=== PATIENT | female | born 1950 | race Caucasian/White ===

== ENCOUNTER 2023-04-25 05:13 | Observation (INO) | payer OTHER, MEDICARE ==
[2023-04-25 05:33] VITALS: BMI 25.4
[2023-04-25] MEDS ORDERED: methylPREDNISolone NA SUCC 125 MG/2 ML VIAL ONE ×3 (05:43→06:18)
[2023-04-25 06:25] LABS: BASO % 0.2 % (0-2.0); EOS % 2.2 % (0-4.5); HEMATOCRIT 40.7 % (32.4-45.2); HEMOGLOBIN 13.4 GM/dL (10.7-15.3); LYMPH % 15.9 % (8-40); MCH 28.5 pg (25.7-33.7); MEAN CELL VOLUME 86.3 fl (80-96); MEAN PLT VOLUME 8.7 fl (7.5-11.1); MONO % 5.3 % (3.8-10.2); NEUT % 76.4 % (42.8-82.8); PLATELET COUNT 216 10^3/uL (134-434); RBC 4.71 M/mm3 (3.60-5.2); RDW 13.6 % (11.6-15.6); WHITE BLOOD COUNT 8.9 K/mm3 (4.0-10.0)
[2023-04-25] MEDS: ALBUTEROL SO4 2.5/IPRATROPIUM 0.5 INH SOL 3 ML VIAL.NEB. NEB SCH ×4 (06:29→20:36)
[2023-04-25 06:58] LABS: POTASSIUM 4.2 mmol/L (3.5-5.1)
[2023-04-25 07:02] LABS: ALBUMIN 3.4 g/dl (3.4-5.0); BLOOD UREA NITROGEN 20.5 mg/dL (7-18)
[2023-04-25 07:05] LABS: CREATININE 0.8 mg/dL (0.55-1.3)
[2023-04-25 07:07] LABS: TOT PROT 6.7 g/dl (6.4-8.2)
[2023-04-25 07:10] LABS: N-TERMINAL BNP 55.7 pg/ml (5-125)
[2023-04-25 07:11] LABS: BILIRUBIN,TOTAL 0.5 mg/dL (0.2-1)
[2023-04-25] MEDS ORDERED: ENTACAPONE 200 MG TABLET PO SCH ×2 (15:00→22:00)
[2023-04-25] MEDS: TIOTROPIUM BROMIDE 2.5 MCG (SPIRIVA) RESPIMAT INHALER IH SCH ×2 (15:41→17:21)
[2023-04-25] MEDS ORDERED: CARBIDOPA/LEVODOPA 25/100 TABLET (FP) PO SCH (22:00)
[2023-04-26] MEDS: ENTACAPONE 200 MG TABLET PO SCH ×3 (06:20→16:00)
[2023-04-26] MEDS ORDERED: CARBIDOPA/LEVODOPA 25/100 TABLET (FP) PO SCH (07:00)
[2023-04-26] MEDS: ALBUTEROL SO4 2.5/IPRATROPIUM 0.5 INH SOL 3 ML VIAL.NEB. NEB SCH ×4 (07:50→19:50)
[2023-04-26] MEDS: TIOTROPIUM BROMIDE 2.5 MCG (SPIRIVA) RESPIMAT INHALER IH SCH (09:28)
[2023-04-26] MEDS ORDERED: predniSONE 20 MG TABLET (UD) PO SCH (10:00)
[2023-04-26 10:53] LABS: BASO % 0.1 % (0-2.0); EOS % 1.8 % (0-4.5); HEMATOCRIT 39.2 % (32.4-45.2); HEMOGLOBIN 13.3 GM/dL (10.7-15.3); LYMPH % 17.1 % (8-40); MCH 28.8 pg (25.7-33.7); MCHC 33.9 g/dl (32.0-36.0); MEAN PLT VOLUME 8.1 fl (7.5-11.1); MONO % 5.7 % (3.8-10.2); NEUT % 75.3 % (42.8-82.8); PLATELET COUNT 227 10^3/uL (134-434); RBC 4.61 M/mm3 (3.60-5.2); RDW 13.5 % (11.6-15.6); WHITE BLOOD COUNT 7.5 K/mm3 (4.0-10.0)
[2023-04-26 11:16] LABS: POTASSIUM 4.2 mmol/L (3.5-5.1)
[2023-04-26 11:17] LABS: CALCIUM 9.2 mg/dL (8.5-10.1)
[2023-04-26 11:18] LABS: BLOOD UREA NITROGEN 20.8 mg/dL (7-18)
[2023-04-26 11:20] LABS: CREATININE 0.9 mg/dL (0.55-1.3)
[2023-04-26 11:32] VITALS: RESP 18
[2023-04-26] MEDS: CARBIDOPA/LEVODOPA 25/100 TABLET (FP) PO SCH ×2 (12:14→15:59)
[2023-04-26] MEDS: methylPREDNISolone NA SUCC 40 MG/1 ML VIAL IVPUSH SCH (12:23)
[2023-04-27] MEDS: ENTACAPONE 200 MG TABLET PO SCH ×2 (06:24→12:46)
[2023-04-27] MEDS: ALBUTEROL SO4 2.5/IPRATROPIUM 0.5 INH SOL 3 ML VIAL.NEB. NEB SCH ×3 (07:44→16:04)
[2023-04-27 10:34] LABS: BASO % 0.2 % (0-2.0); EOS % 1.7 % (0-4.5); HEMATOCRIT 41.9 % (32.4-45.2); HEMOGLOBIN 14.2 GM/dL (10.7-15.3); LYMPH % 18.3 % (8-40); MCH 28.9 pg (25.7-33.7); MCHC 33.9 g/dl (32.0-36.0); MEAN CELL VOLUME 85.3 fl (80-96); MEAN PLT VOLUME 8.6 fl (7.5-11.1); MONO % 5.2 % (3.8-10.2); NEUT % 74.6 % (42.8-82.8); PLATELET COUNT 240 10^3/uL (134-434); RBC 4.92 M/mm3 (3.60-5.2); RDW 13.6 % (11.6-15.6); WHITE BLOOD COUNT 7.4 K/mm3 (4.0-10.0)
[2023-04-27 10:50] LABS: POTASSIUM 4.1 mmol/L (3.5-5.1)
[2023-04-27 10:57] LABS: ALBUMIN 3.7 g/dl (3.4-5.0); BLOOD UREA NITROGEN 16.4 mg/dL (7-18); CALCIUM 9.6 mg/dL (8.5-10.1)
[2023-04-27 10:58] LABS: CREATININE 0.9 mg/dL (0.55-1.3)
[2023-04-27 11:01] LABS: BILIRUBIN,TOTAL 0.7 mg/dL (0.2-1); TOT PROT 7.4 g/dl (6.4-8.2)
[2023-04-27] MEDS: methylPREDNISolone NA SUCC 40 MG/1 ML VIAL IVPUSH SCH (11:22)
[2023-04-27] MEDS: TIOTROPIUM BROMIDE 2.5 MCG (SPIRIVA) RESPIMAT INHALER IH SCH (11:23)
[2023-04-27] MEDS: CARBIDOPA/LEVODOPA 25/100 TABLET (FP) PO SCH (12:42)
[2023-04-27 13:27] VITALS: BP 147/72; PULSE 78; TEMP 98.9
[2023-04-28] MEDS ORDERED: ENOXAPARIN NA (PORCINE) 40 MG/0.4 ML DISP.SYRIN SQ SCH (10:00)
== END 2023-04-27 16:14 | disposition home health service (06) ==
LOC: JER 05:13 → JERBED 10:42 → J5S 14:13
PROVIDERS: ADMIT Internal Medicine
PROC: 3E0F7GC Introduction of Other Therapeutic Substance into Respiratory Tract, Via Natural or Artificial Opening (ICD-10-PCS; principal; 2023-04-25)
DX: J45.901 Unspecified asthma with (acute) exacerbation (principal); R06.00 Dyspnea, unspecified; G20 Parkinson's disease; Z85.51 Personal history of malignant neoplasm of bladder; K59.09 Other constipation; M81.0 Age-related osteoporosis without current pathological fracture
CPT/HCPCS: 36415; 71045-TC-FY; 80048; 80053; 83880; 84484; 85025; 93005; 93010; 94640; 97116-GP; 97162-GP; 99285-25; G0378

== ENCOUNTER 2023-08-27 16:30 | Emergency (ER) | payer OTHER, MEDICARE ==
[2023-08-27 16:44] VITALS: RESP 18; TEMP 98.2; BMI 24.4
[2023-08-27] MEDS ORDERED: DIPHTH,PERTUSS(ACELL),TET 0.5 ML DISP.SYRIN IM ONE ×2 (18:28→18:46)
[2023-08-27] MEDS ORDERED: ACETAMINOPHEN 500 MG TABLET (FP) PO ONE (19:49)
[2023-08-27] MEDS ORDERED: ACETAMINOPHEN 500 MG TABLET (FP) ONE ×2 (19:51→19:54)
[2023-08-27 20:31] VITALS: BP 131/56; PULSE 62
== END 2023-08-27 22:14 | disposition home or self-care (01) ==
LOC: JER 16:30
PROC: 0HQDXZZ Repair Right Lower Arm Skin, External Approach (ICD-10-PCS; principal; 2023-08-27)
PROC: 3E0234Z Introduction of Serum, Toxoid and Vaccine into Muscle, Percutaneous Approach (ICD-10-PCS; 2023-08-27)
DX: S51.011A Laceration without foreign body of right elbow, initial encounter (principal); W19.XXXA Unspecified fall, initial encounter; Y92.008 Other place in unspecified non-institutional (private) residence as the place of occurrence of the external cause
CPT/HCPCS: 12002-25; 73070-TC-RT-FY; 90471; 90715; 99283-25

== ENCOUNTER 2023-08-30 15:19 | Observation (INO) | payer OTHER ==
[2023-08-30] MEDS ORDERED: CEPHALEXIN MONOHYDRATE 500 MG CAPSULE (UD) PO ONE (17:24)
[2023-08-30] MEDS ORDERED: CEPHALEXIN MONOHYDRATE 500 MG CAPSULE (UD) ONE (18:51)
[2023-08-30 19:10] LABS: BASO % 0.6 % (0-2.0); EOS % 2.2 % (0-4.5); HEMATOCRIT 38.6 % (32.4-45.2); HEMOGLOBIN 12.7 GM/dL (10.7-15.3); LYMPH % 25.1 % (8-40); MCH 29.1 pg (25.7-33.7); MEAN CELL VOLUME 88.2 fl (80-96); MEAN PLT VOLUME 8.3 fl (7.5-11.1); MONO % 6.2 % (3.8-10.2); NEUT % 65.9 % (42.8-82.8); PLATELET COUNT 235 10^3/uL (134-434); RBC 4.37 M/mm3 (3.60-5.2); RDW 13.7 % (11.6-15.6); WHITE BLOOD COUNT 8.1 K/mm3 (4.0-10.0)
[2023-08-30 19:14] LABS: EPI CELLS 11 /uL (0-25.1); HYALINE CASTS 0 /uL (0-3.1); URINE APPEARANCE CLEAR; URINE BACTERIA 133 /uL (0-1359); URINE BILIRUBIN NEGATIVE (NEGATIVE); URINE COLOR DK YELLOW; URINE GLUCOSE (UA) NEGATIVE (NEGATIVE); URINE KETONE TRACE (NEGATIVE); URINE LEUK ESTERASE 1+ (NEGATIVE); URINE NITRITE NEGATIVE (NEGATIVE); URINE PROTEIN NEGATIVE (NEGATIVE); URINE RBC 14 /uL (0-23.9); URINE WBC 54 /uL (0-25.8)
[2023-08-30 19:19] LABS: POTASSIUM 3.7 mmol/L (3.5-5.1)
[2023-08-30 19:22] LABS: ALBUMIN 3.2 g/dl (3.4-5.0); CALCIUM 9.4 mg/dL (8.5-10.1)
[2023-08-30 19:25] LABS: CREATININE 0.6 mg/dL (0.55-1.3)
[2023-08-30 19:26] LABS: BILIRUBIN,TOTAL 0.5 mg/dL (0.2-1)
[2023-08-30 19:28] LABS: TOT PROT 6.3 g/dl (6.4-8.2)
[2023-08-30 21:45] LABS: URINE CRYSTALS FEW /hpf
[2023-08-30] MEDS ORDERED: SODIUM CHLORIDE 1,000 ML IV SCH (22:30)
[2023-08-31] MEDS ORDERED: ALBUTEROL SO4 HFA INHALER IH PRN (06:49)
[2023-08-31] MEDS ORDERED: CARBIDOPA/LEVODOPA 25/100 TABLET (FP) PO SCH ×2 (07:00→12:00)
[2023-08-31 07:01] LABS: HEMATOCRIT 40.1 % (32.4-45.2); HEMOGLOBIN 13.2 GM/dL (10.7-15.3); MCH 29.1 pg (25.7-33.7); MEAN CELL VOLUME 88.3 fl (80-96); MEAN PLT VOLUME 8.2 fl (7.5-11.1); PLATELET COUNT 230 10^3/uL (134-434); RBC 4.54 M/mm3 (3.60-5.2); RDW 13.4 % (11.6-15.6); WHITE BLOOD COUNT 7.2 K/mm3 (4.0-10.0)
[2023-08-31 07:08] LABS: POTASSIUM 3.8 mmol/L (3.5-5.1)
[2023-08-31 07:11] LABS: BLOOD UREA NITROGEN 18.8 mg/dL (7-18); CALCIUM 8.7 mg/dL (8.5-10.1)
[2023-08-31 07:14] LABS: CREATININE 0.8 mg/dL (0.55-1.3)
[2023-08-31] MEDS: ENTACAPONE 200 MG TABLET PO SCH ×3 (08:56→16:12)
[2023-08-31] MEDS ORDERED: CEPHALEXIN MONOHYDRATE 500 MG CAPSULE (UD) PO SCH (10:00)
[2023-08-31] MEDS: CARBIDOPA/LEVODOPA 25/100 TABLET (FP) PO SCH ×3 (10:03→22:29)
[2023-08-31] MEDS: ENOXAPARIN NA (PORCINE) 40 MG/0.4 ML DISP.SYRIN SQ SCH (10:09)
[2023-08-31] MEDS: POLYETHYLENE GLYCOL (HEALTHYLAX) 3350 17 GM PACKET PO SCH (10:09)
[2023-08-31] MEDS ORDERED: CARBIDOPA/LEVODOPA 25/100 TABLET (FP) ONE ×2 (14:11→22:24)
[2023-08-31] MEDS ORDERED: HALOPERIDOL LACTATE 5 MG/ML IM ONE (20:02)
[2023-08-31] MEDS ORDERED: SENNOSIDES 8.6MG TABLET (FP) PO SCH (22:00)
[2023-08-31] MEDS ORDERED: SENNOSIDES 8.6MG TABLET (FP) PO ONE (22:24)
[2023-09-01] MEDS ORDERED: CARBIDOPA/LEVODOPA 25/100 TABLET (FP) ONE (06:06)
[2023-09-01] MEDS: CARBIDOPA/LEVODOPA 25/100 TABLET (FP) PO SCH ×3 (06:09→22:07)
[2023-09-01] MEDS ORDERED: CEFTRIAXONE 1 GM/50 ML BAG ONE (08:47)
[2023-09-01] MEDS: POLYETHYLENE GLYCOL (HEALTHYLAX) 3350 17 GM PACKET PO SCH (08:59)
[2023-09-01] MEDS: ENOXAPARIN NA (PORCINE) 40 MG/0.4 ML DISP.SYRIN SQ SCH (08:59)
[2023-09-01] MEDS: ENTACAPONE 200 MG TABLET PO SCH ×4 (08:59→21:13)
[2023-09-01] MEDS ORDERED: CEFTRIAXONE 1 GM in DEXTROSE 5%-WATER - 50 ML IVPB SCH (10:00)
[2023-09-01] MEDS ORDERED: LORazepam 2 MG/ML SDV VIAL IVPUSH ONE (11:23)
[2023-09-01 15:38] VITALS: BMI 23.4
[2023-09-01] MEDS ORDERED: ALBUTEROL SO4 HFA INHALER IH PRN (16:56)
[2023-09-01] MEDS ORDERED: SENNOSIDES 8.6MG TABLET (FP) PO SCH (22:00)
[2023-09-02] MEDS: CARBIDOPA/LEVODOPA 25/100 TABLET (FP) PO SCH ×2 (07:00→13:27)
[2023-09-02] MEDS: ENTACAPONE 200 MG TABLET PO SCH ×3 (07:00→15:25)
[2023-09-02] MEDS: ENOXAPARIN NA (PORCINE) 40 MG/0.4 ML DISP.SYRIN SQ SCH ×2 (09:22→09:24)
[2023-09-02] MEDS ORDERED: CEFTRIAXONE 1 GM in DEXTROSE 5%-WATER - 50 ML IVPB SCH (10:00)
[2023-09-02] MEDS ORDERED: FUROSEMIDE 20 MG TABLET (FP) PO SCH (10:00)
[2023-09-02] MEDS ORDERED: POLYETHYLENE GLYCOL (HEALTHYLAX) 3350 17 GM PACKET PO SCH (10:00)
[2023-09-02 11:47] VITALS: PULSE 92
[2023-09-02] MEDS ORDERED: CEPHALEXIN MONOHYDRATE 500 MG CAPSULE (UD) PO SCH (12:00)
[2023-09-02 15:00] VITALS: BP 118/67; RESP 18; TEMP 98.1
== END 2023-09-02 16:03 | disposition home health service (06) ==
LOC: JER 15:19 → JERBED 20:22 → J8W 09-01 14:21
PROVIDERS: ADMIT Internal Medicine; ATTEND Nurse Practitioner Acute Care
PROC: 3E03329 Introduction of Other Anti-infective into Peripheral Vein, Percutaneous Approach (ICD-10-PCS; principal; 2023-08-30)
PROC: 3E023GC Introduction of Other Therapeutic Substance into Muscle, Percutaneous Approach (ICD-10-PCS; 2023-08-30)
PROC: 3E033NZ Introduction of Analgesics, Hypnotics, Sedatives into Peripheral Vein, Percutaneous Approach (ICD-10-PCS; 2023-08-30)
PROC: 3E0337Z Introduction of Electrolytic and Water Balance Substance into Peripheral Vein, Percutaneous Approach (ICD-10-PCS; 2023-08-30)
DX: N39.0 Urinary tract infection, site not specified (principal); I95.1 Orthostatic hypotension; G20.A1 Parkinson's disease without dyskinesia, without mention of fluctuations; J45.909 Unspecified asthma, uncomplicated; K59.09 Other constipation; M81.0 Age-related osteoporosis without current pathological fracture; Z85.51 Personal history of malignant neoplasm of bladder; Z99.89 Dependence on other enabling machines and devices; Z29.89 Encounter for other specified prophylactic measures
CPT/HCPCS: 36415; 70450-TC; 70551-TC; 71045-TC-FY; 80048; 80053; 81003; 82962; 84484; 85025; 85027; 87086; 93005; 93010; 96361; 96365; 96372; 96375; 97116-GP; 97161-GP; 99285-25; G0378

== ENCOUNTER 2023-09-07 02:46 | Observation (INO) | payer OTHER ==
[2023-09-07] MEDS ORDERED: ACETAMINOPHEN 1000 MG/100 ML BAG IVPB ONE (03:50)
[2023-09-07] MEDS ORDERED: FAMOTIDINE 20 MG/50 ML IVPB 20 MG/50 ML MG IVPB ONE ×2 (03:50→04:24)
[2023-09-07] MEDS ORDERED: MAG HYDROX/AL HYDROX/SIMETH 30 ML UNIT-DOSE CUP PO ONE (03:50)
[2023-09-07] MEDS ORDERED: ACETAMINOPHEN INJECTION 100 ML IVPB ONE (04:24)
[2023-09-07] MEDS ORDERED: MAG HYDROX/AL HYDROX/SIMETH 30 ML UNIT-DOSE CUP ONE (04:24)
[2023-09-07 04:27] LABS: BASO % 0.1 % (0-2.0); EOS % 1.8 % (0-4.5); HEMATOCRIT 41.4 % (32.4-45.2); HEMOGLOBIN 13.6 GM/dL (10.7-15.3); MCHC 32.9 g/dl (32.0-36.0); MEAN CELL VOLUME 87.9 fl (80-96); MEAN PLT VOLUME 8.4 fl (7.5-11.1); MONO % 7.3 % (3.8-10.2); NEUT % 73.8 % (42.8-82.8); PLATELET COUNT 249 10^3/uL (134-434); RBC 4.71 M/mm3 (3.60-5.2); RDW 13.5 % (11.6-15.6); WHITE BLOOD COUNT 7.9 K/mm3 (4.0-10.0)
[2023-09-07 04:45] LABS: CALCIUM 9.5 mg/dL (8.5-10.1)
[2023-09-07 04:46] LABS: ALBUMIN 3.5 g/dl (3.4-5.0); BLOOD UREA NITROGEN 23.4 mg/dL (7-18)
[2023-09-07 04:49] LABS: CREATININE 0.8 mg/dL (0.55-1.3)
[2023-09-07 04:50] LABS: BILIRUBIN,TOTAL 0.6 mg/dL (0.2-1); TOT PROT 6.9 g/dl (6.4-8.2)
[2023-09-07] MEDS ORDERED: MAGNESIUM SULF 50% (8.12 MEQ/2 ML-1 GM VIAL) IVPB ONE (05:07)
[2023-09-07] MEDS ORDERED: MAGNESIUM SULFATE IN WATER 2 GM/50 ML IVPB IVPB ONE (05:08)
[2023-09-07 08:43] LABS: PH,URINE 6.5 (5.0-8.0); URINE APPEARANCE CLEAR; URINE BILIRUBIN NEGATIVE (NEGATIVE); URINE COLOR DK YELLOW; URINE GLUCOSE (UA) NEGATIVE (NEGATIVE); URINE KETONE NEGATIVE (NEGATIVE); URINE LEUK ESTERASE NEGATIVE (NEGATIVE); URINE NITRITE NEGATIVE (NEGATIVE); URINE PROTEIN NEGATIVE (NEGATIVE)
[2023-09-07] MEDS ORDERED: ALBUTEROL SO4 HFA INHALER IH PRN (10:29)
[2023-09-07] MEDS ORDERED: LACTATED RINGERS SOLUTION 1,000 ML IV SCH (10:30)
[2023-09-07] MEDS ORDERED: IBUPROFEN 400 MG TABLET (FP) PO PRN (11:12)
[2023-09-07] MEDS ORDERED: CARBIDOPA/LEVODOPA 25/100 TABLET (FP) ONE (12:09)
[2023-09-07] MEDS: POLYETHYLENE GLYCOL (HEALTHYLAX) 3350 17 GM PACKET PO SCH (12:11)
[2023-09-07] MEDS ORDERED: CARBIDOPA/LEVODOPA 25/100 TABLET (FP) PO SCH (14:00)
[2023-09-07] MEDS ORDERED: HALOPERIDOL LACTATE 5 MG/ML IVPUSH PRN (14:58)
[2023-09-07] MEDS: ENTACAPONE 200 MG TABLET PO SCH ×2 (16:17→16:18)
[2023-09-07] MEDS: CARBIDOPA/LEVODOPA 25/100 TABLET (FP) PO SCH (16:18)
[2023-09-07] MEDS ORDERED: LIDOCAINE PATCH REMOVAL MC SCH (22:00)
[2023-09-08 00:27] VITALS: BMI 22.8
[2023-09-08] MEDS: ENTACAPONE 200 MG TABLET PO SCH ×3 (06:49→17:08)
[2023-09-08] MEDS: CARBIDOPA/LEVODOPA 25/100 TABLET (FP) PO SCH ×4 (06:50→22:15)
[2023-09-08 07:25] LABS: BASO % 0.2 % (0-2.0); EOS % 2.3 % (0-4.5); HEMATOCRIT 38.6 % (32.4-45.2); HEMOGLOBIN 13.1 GM/dL (10.7-15.3); MCH 29.8 pg (25.7-33.7); MCHC 33.9 g/dl (32.0-36.0); MEAN PLT VOLUME 8.2 fl (7.5-11.1); MONO % 5.9 % (3.8-10.2); NEUT % 73.6 % (42.8-82.8); PLATELET COUNT 239 10^3/uL (134-434); RBC 4.38 M/mm3 (3.60-5.2); RDW 13.1 % (11.6-15.6)
[2023-09-08 07:37] LABS: ALBUMIN 3.3 g/dl (3.4-5.0); BLOOD UREA NITROGEN 19.7 mg/dL (7-18); MAGNESIUM 2.3 mg/dL (1.8-2.4)
[2023-09-08 07:40] LABS: CREATININE 0.8 mg/dL (0.55-1.3); PHOSPHOROUS 2.8 mg/dL (2.5-4.9)
[2023-09-08 07:41] LABS: TOT PROT 6.6 g/dl (6.4-8.2)
[2023-09-08 07:55] LABS: BILIRUBIN,TOTAL 0.8 mg/dL (0.2-1)
[2023-09-08] MEDS: POLYETHYLENE GLYCOL (HEALTHYLAX) 3350 17 GM PACKET PO SCH (09:15)
[2023-09-08] MEDS: LIDOCAINE 4% PATCH TP SCH (09:15)
[2023-09-08] MEDS: ENOXAPARIN NA (PORCINE) 40 MG/0.4 ML DISP.SYRIN SQ SCH (09:29)
[2023-09-08] MEDS: lamoTRIgine 25 MG TABLET PO SCH (13:43)
[2023-09-08] MEDS: LIDOCAINE PATCH REMOVAL MC SCH (22:25)
[2023-09-09] MEDS: OLANZapine 2.5 MG TABLET PO SCH ×2 (03:38→21:46)
[2023-09-09 07:47] LABS: HEMATOCRIT 40.4 % (32.4-45.2); HEMOGLOBIN 13.5 GM/dL (10.7-15.3); MCH 29.2 pg (25.7-33.7); MCHC 33.5 g/dl (32.0-36.0); MEAN CELL VOLUME 87.2 fl (80-96); MEAN PLT VOLUME 8.3 fl (7.5-11.1); PLATELET COUNT 267 10^3/uL (134-434); RBC 4.64 M/mm3 (3.60-5.2); RDW 13.6 % (11.6-15.6); WHITE BLOOD COUNT 6.5 K/mm3 (4.0-10.0)
[2023-09-09 07:55] LABS: POTASSIUM 3.9 mmol/L (3.5-5.1)
[2023-09-09 07:59] LABS: CALCIUM 9.4 mg/dL (8.5-10.1)
[2023-09-09 08:00] LABS: BLOOD UREA NITROGEN 16.2 mg/dL (7-18)
[2023-09-09 08:03] LABS: CREATININE 0.7 mg/dL (0.55-1.3)
[2023-09-09] MEDS: LIDOCAINE 4% PATCH TP SCH (09:42)
[2023-09-09] MEDS: ENOXAPARIN NA (PORCINE) 40 MG/0.4 ML DISP.SYRIN SQ SCH (09:42)
[2023-09-09] MEDS: CARBIDOPA/LEVODOPA 25/100 TABLET (FP) PO SCH ×4 (09:43→21:47)
[2023-09-09] MEDS: POLYETHYLENE GLYCOL (HEALTHYLAX) 3350 17 GM PACKET PO SCH (09:43)
[2023-09-09] MEDS: lamoTRIgine 25 MG TABLET PO SCH ×2 (09:43→10:05)
[2023-09-09 10:01] VITALS: RESP 18
[2023-09-09] MEDS: LIDOCAINE PATCH REMOVAL MC SCH (21:49)
[2023-09-10 06:29] VITALS: BP 146/76; PULSE 79; TEMP 97.8
[2023-09-10] MEDS: LIDOCAINE 4% PATCH TP SCH (10:34)
[2023-09-10] MEDS: CARBIDOPA/LEVODOPA 25/100 TABLET (FP) PO SCH (10:34)
[2023-09-10] MEDS: lamoTRIgine 25 MG TABLET PO SCH (10:35)
[2023-09-10] MEDS: POLYETHYLENE GLYCOL (HEALTHYLAX) 3350 17 GM PACKET PO SCH (10:35)
[2023-09-10] MEDS: ENOXAPARIN NA (PORCINE) 40 MG/0.4 ML DISP.SYRIN SQ SCH (10:42)
== END 2023-09-10 12:28 | disposition home health service (06) ==
LOC: JER 02:46 → JERBED 05:31 → J4W 16:54
PROVIDERS: ADMIT Internal Medicine; ATTEND Internal Medicine
PROC: 3E033NZ Introduction of Analgesics, Hypnotics, Sedatives into Peripheral Vein, Percutaneous Approach (ICD-10-PCS; principal; 2023-09-07)
PROC: 3E033GC Introduction of Other Therapeutic Substance into Peripheral Vein, Percutaneous Approach (ICD-10-PCS; 2023-09-07)
PROC: 3E0337Z Introduction of Electrolytic and Water Balance Substance into Peripheral Vein, Percutaneous Approach (ICD-10-PCS; 2023-09-07)
DX: R07.9 Chest pain, unspecified (principal); R55 Syncope and collapse; G20.B2 Parkinson's disease with dyskinesia, with fluctuations; G89.29 Other chronic pain; X58.XXXA Exposure to other specified factors, initial encounter; Y93.89 Activity, other specified; Y92.89 Other specified places as the place of occurrence of the external cause; M25.552 Pain in left hip; Y92.9 Unspecified place or not applicable; J45.909 Unspecified asthma, uncomplicated; K59.09 Other constipation; Z85.51 Personal history of malignant neoplasm of bladder; Z87.891 Personal history of nicotine dependence
CPT/HCPCS: 0241U-QW; 36415; 70450-TC; 71045-TC-FY; 71275-TC; 72125-TC; 74177-TC; 80048; 80053; 81003; 82607; 83735; 84100; 84439; 84443; 84484; 85025; 85027; 87086; 93005; 93010; 93306-TC; 96361; 96365; 96375; 97116-GP; 97162-GP; 99285-25; G0378

== ENCOUNTER 2023-09-17 13:08 | Inpatient (IN) | payer OTHER ==
[2023-09-17 13:26] VITALS: BMI 25.4
[2023-09-17] MEDS ORDERED: ACETAMINOPHEN 1000 MG/100 ML BAG IVPB ONE (14:29)
[2023-09-17] MEDS ORDERED: SODIUM CHLORIDE 0.9% 500 ML INFUS.BAG IV ONE (14:33)
[2023-09-17] MEDS ORDERED: ACETAMINOPHEN INJECTION 100 ML IVPB ONE (14:35)
[2023-09-17 15:09] LABS: BASO % 0.1 % (0-2.0); EOS % 0.2 % (0-4.5); HEMATOCRIT 46.8 % (32.4-45.2); HEMOGLOBIN 15.3 GM/dL (10.7-15.3); LYMPH % 8.1 % (8-40); MCH 28.8 pg (25.7-33.7); MCHC 32.8 g/dl (32.0-36.0); MEAN CELL VOLUME 87.8 fl (80-96); MEAN PLT VOLUME 8.5 fl (7.5-11.1); MONO % 4.5 % (3.8-10.2); NEUT % 87.1 % (42.8-82.8); PLATELET COUNT 283 10^3/uL (134-434); RBC 5.33 M/mm3 (3.60-5.2); RDW 13.1 % (11.6-15.6)
[2023-09-17 15:15] LABS: INR 1.06 (0.83-1.09); PROTHROMBIN TIME (PATIENT) 12.3 SEC (9.7-13.0)
[2023-09-17 15:18] LABS: ACTIVATED PTT 29.8 SECONDS (25.2-36.5)
[2023-09-17 15:58] LABS: ALBUMIN 3.9 g/dl (3.4-5.0); CALCIUM 10.1 mg/dL (8.5-10.1); MAGNESIUM 2.2 mg/dL (1.8-2.4)
[2023-09-17 15:59] LABS: BLOOD UREA NITROGEN 14.5 mg/dL (7-18)
[2023-09-17 16:03] LABS: BILIRUBIN,TOTAL 0.9 mg/dL (0.2-1); CREATININE 0.7 mg/dL (0.55-1.3); TOT PROT 7.8 g/dl (6.4-8.2)
[2023-09-18] MEDS ORDERED: LACTATED RINGERS SOLUTION 1,000 ML/1,000 ML INFUS.BAG IV SCH (00:15)
[2023-09-18] MEDS ORDERED: CEFTRIAXONE 1 GM in DEXTROSE 5%-WATER - 50 ML IVPB ONE (00:37)
[2023-09-18 01:29] LABS: EPI CELLS 1 /uL (0-25.1); HYALINE CASTS 0 /uL (0-3.1); URINE APPEARANCE CLOUDY; URINE BACTERIA 4423 /uL (0-1359); URINE BILIRUBIN NEGATIVE (NEGATIVE); URINE COLOR YELLOW; URINE GLUCOSE (UA) NEGATIVE (NEGATIVE); URINE KETONE 1+ (NEGATIVE); URINE LEUK ESTERASE 3+ (NEGATIVE); URINE NITRITE POSITIVE (NEGATIVE); URINE PROTEIN NEGATIVE (NEGATIVE); URINE RBC 127 /uL (0-23.9); URINE UROBILINOGEN 0.2 mg/dL (0.2-1.0); URINE WBC 2819 /uL (0-25.8)
[2023-09-18 02:18] LABS: HEMATOCRIT 43.9 % (32.4-45.2); HEMOGLOBIN 14.5 GM/dL (10.7-15.3); MCH 28.8 pg (25.7-33.7); MCHC 33.1 g/dl (32.0-36.0); MEAN CELL VOLUME 86.9 fl (80-96); MEAN PLT VOLUME 8.3 fl (7.5-11.1); PLATELET COUNT 261 10^3/uL (134-434); RBC 5.05 M/mm3 (3.60-5.2); RDW 13.3 % (11.6-15.6); WHITE BLOOD COUNT 10.1 K/mm3 (4.0-10.0)
[2023-09-18 02:37] LABS: POTASSIUM 3.7 mmol/L (3.5-5.1)
[2023-09-18 02:42] LABS: ALBUMIN 3.5 g/dl (3.4-5.0); BLOOD UREA NITROGEN 14.6 mg/dL (7-18)
[2023-09-18 02:44] LABS: CREATININE 0.7 mg/dL (0.55-1.3)
[2023-09-18 02:46] LABS: BILIRUBIN,TOTAL 1.4 mg/dL (0.2-1); CALCIUM 9.2 mg/dL (8.5-10.1); TOT PROT 7.1 g/dl (6.4-8.2)
[2023-09-18] MEDS ORDERED: CEFTRIAXONE 1 GM/50 ML BAG ONE (02:51)
[2023-09-18] MEDS: LACTATED RINGERS SOLUTION 1,000 ML/1,000 ML INFUS.BAG IV SCH (03:16)
[2023-09-18] MEDS ORDERED: SODIUM CHLORIDE 1,000 ML IV STA (06:08)
[2023-09-18] MEDS ORDERED: CARBIDOPA/LEVODOPA 25/100 TABLET (FP) PO SCH (08:00)
[2023-09-18] MEDS: lamoTRIgine 25 MG TABLET PO SCH (11:11)
[2023-09-18 11:12] LABS: HEMATOCRIT 40.8 % (32.4-45.2); HEMOGLOBIN 13.5 GM/dL (10.7-15.3); MCH 29.1 pg (25.7-33.7); MCHC 33.2 g/dl (32.0-36.0); MEAN CELL VOLUME 87.6 fl (80-96); MEAN PLT VOLUME 8.2 fl (7.5-11.1); PLATELET COUNT 241 10^3/uL (134-434); RBC 4.66 M/mm3 (3.60-5.2); RDW 12.9 % (11.6-15.6)
[2023-09-18] MEDS: HEPARIN NA (PORCINE) 5,000 UNITS/ML 1ML VIAL SQ SCH ×2 (15:10→21:27)
[2023-09-18] MEDS: CARBIDOPA/LEVODOPA 25/100 TABLET (FP) PO SCH ×3 (15:10→21:23)
[2023-09-18] MEDS: OLANZapine 2.5 MG TABLET PO SCH (21:23)
[2023-09-19] MEDS: CEFTRIAXONE 1 GM in DEXTROSE 5%-WATER - 50 ML IVPB SCH (01:51)
[2023-09-19] MEDS: LACTATED RINGERS SOLUTION 1,000 ML/1,000 ML INFUS.BAG IV SCH (03:00)
[2023-09-19] MEDS: HEPARIN NA (PORCINE) 5,000 UNITS/ML 1ML VIAL SQ SCH ×3 (06:10→21:02)
[2023-09-19 08:39] LABS: BASO % 0.3 % (0-2.0); EOS % 2.8 % (0-4.5); HEMATOCRIT 39.7 % (32.4-45.2); HEMOGLOBIN 13.7 GM/dL (10.7-15.3); LYMPH % 13.7 % (8-40); MCH 30.4 pg (25.7-33.7); MCHC 34.4 g/dl (32.0-36.0); MEAN CELL VOLUME 88.2 fl (80-96); MEAN PLT VOLUME 8.6 fl (7.5-11.1); MONO % 7.6 % (3.8-10.2); NEUT % 75.6 % (42.8-82.8); PLATELET COUNT 228 10^3/uL (134-434); RDW 12.9 % (11.6-15.6); WHITE BLOOD COUNT 8.1 K/mm3 (4.0-10.0)
[2023-09-19 08:44] LABS: POTASSIUM 3.9 mmol/L (3.5-5.1)
[2023-09-19 08:53] LABS: ALBUMIN 3.1 g/dl (3.4-5.0); BLOOD UREA NITROGEN 23.7 mg/dL (7-18); CALCIUM 9.1 mg/dL (8.5-10.1); PHOSPHOROUS 3.4 mg/dL (2.5-4.9)
[2023-09-19 08:55] LABS: BILIRUBIN,TOTAL 0.7 mg/dL (0.2-1); MAGNESIUM 1.9 mg/dL (1.8-2.4); TOT PROT 6.4 g/dl (6.4-8.2)
[2023-09-19 08:56] LABS: CREATININE 0.7 mg/dL (0.55-1.3)
[2023-09-19] MEDS: CARBIDOPA/LEVODOPA 25/100 TABLET (FP) PO SCH ×4 (10:01→21:19)
[2023-09-19] MEDS: lamoTRIgine 25 MG TABLET PO SCH (11:42)
[2023-09-19] MEDS: OLANZapine 2.5 MG TABLET PO SCH (21:02)
[2023-09-20] MEDS: CEFTRIAXONE 1 GM in DEXTROSE 5%-WATER - 50 ML IVPB SCH (00:49)
[2023-09-20] MEDS: HEPARIN NA (PORCINE) 5,000 UNITS/ML 1ML VIAL SQ SCH ×4 (05:59→21:53)
[2023-09-20] MEDS: CARBIDOPA/LEVODOPA 25/100 TABLET (FP) PO SCH ×4 (09:15→21:44)
[2023-09-20] MEDS: lamoTRIgine 25 MG TABLET PO SCH ×2 (09:16→09:27)
[2023-09-20] MEDS: ALBUTEROL SO4 HFA INHALER IH PRN (09:53)
[2023-09-20] MEDS ORDERED: SODIUM CHLORIDE 0.45% 1,000 ML IV SCH (13:15)
[2023-09-20] MEDS: OLANZapine 2.5 MG TABLET PO SCH (21:44)
[2023-09-21] MEDS: CEFTRIAXONE 1 GM in DEXTROSE 5%-WATER - 50 ML IVPB SCH (02:10)
[2023-09-21] MEDS: HEPARIN NA (PORCINE) 5,000 UNITS/ML 1ML VIAL SQ SCH ×2 (05:54→14:08)
[2023-09-21 08:38] LABS: BASO % 0.2 % (0-2.0); EOS % 2.2 % (0-4.5); HEMOGLOBIN 13.6 GM/dL (10.7-15.3); LYMPH % 19.5 % (8-40); MCH 29.2 pg (25.7-33.7); MCHC 33.1 g/dl (32.0-36.0); MEAN PLT VOLUME 8.5 fl (7.5-11.1); MONO % 7.1 % (3.8-10.2); PLATELET COUNT 238 10^3/uL (134-434); RBC 4.67 M/mm3 (3.60-5.2); WHITE BLOOD COUNT 6.1 K/mm3 (4.0-10.0)
[2023-09-21] MEDS: ALBUTEROL SO4 HFA INHALER IH PRN (08:52)
[2023-09-21 08:59] LABS: POTASSIUM 4.1 mmol/L (3.5-5.1)
[2023-09-21] MEDS: lamoTRIgine 25 MG TABLET PO SCH (09:05)
[2023-09-21] MEDS: CARBIDOPA/LEVODOPA 25/100 TABLET (FP) PO SCH ×3 (09:05→17:18)
[2023-09-21 09:06] LABS: CALCIUM 9.8 mg/dL (8.5-10.1)
[2023-09-21] MEDS: POLYETHYLENE GLYCOL (HEALTHYLAX) 3350 17 GM PACKET PO SCH (09:06)
[2023-09-21 09:07] LABS: ALBUMIN 3.3 g/dl (3.4-5.0)
[2023-09-21 09:10] LABS: CREATININE 0.7 mg/dL (0.55-1.3)
[2023-09-21 09:11] LABS: BILIRUBIN,TOTAL 0.4 mg/dL (0.2-1); TOT PROT 6.8 g/dl (6.4-8.2)
[2023-09-21] MEDS ORDERED: hydrOXYzine PAMOATE 25 MG CAPSULE (FP) PO ONE (20:54)
[2023-09-22] MEDS: CARBIDOPA/LEVODOPA 25/100 TABLET (FP) PO SCH ×5 (00:05→22:08)
[2023-09-22] MEDS: HEPARIN NA (PORCINE) 5,000 UNITS/ML 1ML VIAL SQ SCH ×4 (00:05→22:08)
[2023-09-22] MEDS: OLANZapine 2.5 MG TABLET PO SCH ×2 (00:06→22:08)
[2023-09-22] MEDS: CEFTRIAXONE 1 GM in DEXTROSE 5%-WATER - 50 ML IVPB SCH (01:11)
[2023-09-22] MEDS: lamoTRIgine 25 MG TABLET PO SCH ×2 (10:19→22:08)
[2023-09-22] MEDS: POLYETHYLENE GLYCOL (HEALTHYLAX) 3350 17 GM PACKET PO SCH (10:19)
[2023-09-22] MEDS ORDERED: QUEtiapine FUMARATE 25 MG TABLET PO ONE (19:57)
[2023-09-23] MEDS: HEPARIN NA (PORCINE) 5,000 UNITS/ML 1ML VIAL SQ SCH ×3 (05:52→21:49)
[2023-09-23] MEDS ORDERED: ALBUTEROL SO4 HFA INHALER IH PRN (07:20)
[2023-09-23 10:20] LABS: HEMATOCRIT 42.3 % (32.4-45.2); HEMOGLOBIN 14.1 GM/dL (10.7-15.3); MCH 29.3 pg (25.7-33.7); MCHC 33.2 g/dl (32.0-36.0); MEAN CELL VOLUME 88.2 fl (80-96); MEAN PLT VOLUME 8.5 fl (7.5-11.1); PLATELET COUNT 240 10^3/uL (134-434); RDW 12.9 % (11.6-15.6); WHITE BLOOD COUNT 7.5 K/mm3 (4.0-10.0)
[2023-09-23 10:35] LABS: POTASSIUM 3.9 mmol/L (3.5-5.1)
[2023-09-23] MEDS: POLYETHYLENE GLYCOL (HEALTHYLAX) 3350 17 GM PACKET PO SCH (10:37)
[2023-09-23] MEDS: CARBIDOPA/LEVODOPA 25/100 TABLET (FP) PO SCH ×4 (10:37→21:49)
[2023-09-23 10:39] LABS: BLOOD UREA NITROGEN 16.9 mg/dL (7-18); CALCIUM 9.5 mg/dL (8.5-10.1)
[2023-09-23 10:43] LABS: CREATININE 0.7 mg/dL (0.55-1.3)
[2023-09-23] MEDS: lamoTRIgine 25 MG TABLET PO SCH ×2 (11:33→21:48)
[2023-09-23] MEDS ORDERED: MELATONIN 5 MG TABLETS PO PRN (13:31)
[2023-09-23] MEDS: OLANZapine 2.5 MG TABLET PO SCH (21:49)
[2023-09-24] MEDS: HEPARIN NA (PORCINE) 5,000 UNITS/ML 1ML VIAL SQ SCH ×3 (06:13→21:35)
[2023-09-24] MEDS: POLYETHYLENE GLYCOL (HEALTHYLAX) 3350 17 GM PACKET PO SCH (10:21)
[2023-09-24] MEDS: lamoTRIgine 25 MG TABLET PO SCH ×2 (10:21→21:35)
[2023-09-24] MEDS: CARBIDOPA/LEVODOPA 25/100 TABLET (FP) PO SCH ×4 (10:22→21:35)
[2023-09-24] MEDS: OLANZapine 2.5 MG TABLET PO SCH (21:37)
[2023-09-25] MEDS: HEPARIN NA (PORCINE) 5,000 UNITS/ML 1ML VIAL SQ SCH ×2 (06:12→14:51)
[2023-09-25 06:50] VITALS: PULSE 91
[2023-09-25 08:59] VITALS: BP 107/68; RESP 17; TEMP 98.4
[2023-09-25] MEDS: POLYETHYLENE GLYCOL (HEALTHYLAX) 3350 17 GM PACKET PO SCH (10:34)
[2023-09-25] MEDS: lamoTRIgine 25 MG TABLET PO SCH (10:34)
[2023-09-25] MEDS: CARBIDOPA/LEVODOPA 25/100 TABLET (FP) PO SCH (11:40)
== END 2023-09-25 15:16 | DRG 56 ==
LOC: JER 13:08 → JERBED 21:38 → J4W 09-18 14:06 → OBSVTOIN 09-18 15:50 → J5S 09-22 19:32
PROVIDERS: ADMIT Internal Medicine
DX: G20.A1 Parkinson's disease without dyskinesia, without mention of fluctuations (principal); G93.41 Metabolic encephalopathy; M62.82 Rhabdomyolysis; G40.909 Epilepsy, unspecified, not intractable, without status epilepticus; W06.XXXA Fall from bed, initial encounter; J45.909 Unspecified asthma, uncomplicated; M81.0 Age-related osteoporosis without current pathological fracture; K59.09 Other constipation; E78.5 Hyperlipidemia, unspecified; I10 Essential (primary) hypertension; N83.292 Other ovarian cyst, left side; R29.6 Repeated falls; G31.84 Mild cognitive impairment of uncertain or unknown etiology; Y92.092 Bedroom in other non-institutional residence as the place of occurrence of the external cause; Z85.51 Personal history of malignant neoplasm of bladder
CPT/HCPCS: 0241U-QW; 36415; 70450-TC; 71045-TC-FY; 72125-TC; 72128-TC; 72131-TC; 72170-TC-FY; 72192-TC; 73552-TC-LT-FY; 73562-TC-LT-FY; 76856-TC; 80048; 80053; 81003; 82550; 82553; 82607; 83735; 84100; 84439; 84443; 84484; 85025; 85027; 85610; 85730; 87040; 87086; 87186; 93005; 93010; 97116-GP; 97161-GP; 99285-25; G0378; J1644

== ENCOUNTER 2023-09-28 03:16 | Inpatient (IN) | payer BC, OTHER ==
[2023-09-28 03:26] VITALS: BMI 24.4
[2023-09-28] MEDS ORDERED: LIDOCAINE 4% PATCH TP ONE ×2 (03:44→03:58)
[2023-09-28] MEDS ORDERED: ACETAMINOPHEN 1000 MG/100 ML BAG IVPB ONE (03:44)
[2023-09-28] MEDS ORDERED: ACETAMINOPHEN INJECTION 100 ML IVPB ONE (03:58)
[2023-09-28 04:27] LABS: EOS % 0.4 % (0-4.5); HEMATOCRIT 41.4 % (32.4-45.2); HEMOGLOBIN 13.6 GM/dL (10.7-15.3); LYMPH % 5.5 % (8-40); MCH 28.8 pg (25.7-33.7); MCHC 32.8 g/dl (32.0-36.0); MEAN CELL VOLUME 87.7 fl (80-96); MEAN PLT VOLUME 8.6 fl (7.5-11.1); MONO % 8.3 % (3.8-10.2); NEUT % 85.8 % (42.8-82.8); PLATELET COUNT 251 10^3/uL (134-434); RBC 4.72 M/mm3 (3.60-5.2); RDW 13.1 % (11.6-15.6); WHITE BLOOD COUNT 13.4 K/mm3 (4.0-10.0)
[2023-09-28 04:31] LABS: INR 1.12 (0.83-1.09)
[2023-09-28 04:47] LABS: CALCIUM 9.7 mg/dL (8.5-10.1)
[2023-09-28 04:48] LABS: ALBUMIN 3.6 g/dl (3.4-5.0); BLOOD UREA NITROGEN 21.7 mg/dL (7-18)
[2023-09-28 04:51] LABS: CREATININE 0.8 mg/dL (0.55-1.3)
[2023-09-28 04:52] LABS: BILIRUBIN,TOTAL 0.6 mg/dL (0.2-1); TOT PROT 7.2 g/dl (6.4-8.2)
[2023-09-28 06:43] LABS: BASO % 0.2 % (0-2.0); EOS % 0.4 % (0-4.5); HEMATOCRIT 39.8 % (32.4-45.2); HEMOGLOBIN 13.2 GM/dL (10.7-15.3); LYMPH % 7.1 % (8-40); MCH 28.9 pg (25.7-33.7); MCHC 33.1 g/dl (32.0-36.0); MEAN CELL VOLUME 87.3 fl (80-96); MEAN PLT VOLUME 9.2 fl (7.5-11.1); MONO % 7.7 % (3.8-10.2); NEUT % 84.6 % (42.8-82.8); PLATELET COUNT 241 10^3/uL (134-434); RBC 4.56 M/mm3 (3.60-5.2); RDW 13.4 % (11.6-15.6); WHITE BLOOD COUNT 12.4 K/mm3 (4.0-10.0)
[2023-09-28 08:08] LABS: URINE APPEARANCE CLEAR; URINE BILIRUBIN NEGATIVE (NEGATIVE); URINE COLOR DK YELLOW; URINE GLUCOSE (UA) NEGATIVE (NEGATIVE); URINE KETONE 1+ (NEGATIVE); URINE LEUK ESTERASE NEGATIVE (NEGATIVE); URINE NITRITE NEGATIVE (NEGATIVE); URINE PROTEIN TRACE (NEGATIVE)
[2023-09-28] MEDS ORDERED: MELATONIN 5 MG TABLETS PO PRN (08:10)
[2023-09-28] MEDS ORDERED: ACETAMINOPHEN 325 MG TABLET (FP) PO PRN (08:10)
[2023-09-28] MEDS ORDERED: ALBUTEROL SO4 HFA INHALER IH PRN (08:11)
[2023-09-28 08:13] LABS: EPI CELLS 5 /uL (0-25.1); HYALINE CASTS 1 /uL (0-3.1); URINE BACTERIA 8 /uL (0-1359); URINE WBC 14 /uL (0-25.8)
[2023-09-28 08:17] LABS: URINE RBC 37.8 /uL (0-23.9)
[2023-09-28] MEDS ORDERED: POLYETHYLENE GLYCOL (HEALTHYLAX) 3350 17 GM PACKET ONE (10:41)
[2023-09-28] MEDS ORDERED: lamoTRIgine 25 MG TABLET ONE (10:43)
[2023-09-28] MEDS: POLYETHYLENE GLYCOL (HEALTHYLAX) 3350 17 GM PACKET PO SCH (10:43)
[2023-09-28] MEDS: lamoTRIgine 25 MG TABLET PO SCH ×2 (10:44→22:06)
[2023-09-28] MEDS: DEXTROSE 5%-LACTATED RINGERS 1,000 ML IV SCH ×2 (10:44→20:00)
[2023-09-28] MEDS: CARBIDOPA/LEVODOPA 25/100 TABLET (FP) PO SCH ×4 (10:44→21:37)
[2023-09-28] MEDS ORDERED: CARBIDOPA/LEVODOPA 25/100 TABLET (FP) ONE ×2 (14:05→17:11)
[2023-09-28] MEDS ORDERED: OLANZapine 2.5 MG TABLET PO SCH (22:00)
[2023-09-28] MEDS ORDERED: LIDOCAINE PATCH REMOVAL MC SCH (22:00)
[2023-09-29] MEDS: CARBIDOPA/LEVODOPA 25/100 TABLET (FP) PO SCH ×5 (09:53→21:30)
[2023-09-29] MEDS ORDERED: ceFAZolin SODIUM 1 GM VIAL ONE ×2 (09:59→10:18)
[2023-09-29] MEDS: lamoTRIgine 25 MG TABLET PO SCH ×3 (10:11→21:30)
[2023-09-29] MEDS: POLYETHYLENE GLYCOL (HEALTHYLAX) 3350 17 GM PACKET PO SCH (10:14)
[2023-09-29] MEDS ORDERED: MIDAZOLAM HCL 2 MG/2 ML SINGLE DOSE VIAL ONE (10:18)
[2023-09-29] MEDS ORDERED: DEXAMETHASONE SOD PHOSPHATE 4 MG/1 ML VIAL ONE (10:18)
[2023-09-29] MEDS ORDERED: ONDANSETRON 4 MG/2 ML VIAL ONE (10:18)
[2023-09-29] MEDS ORDERED: SODIUM CHLORIDE 0.9% P/F 10 ML VIAL IJ ONE (10:18)
[2023-09-29] MEDS ORDERED: ALBUTEROL SO4 HFA INHALER IH ONE (10:18)
[2023-09-29 10:23] LABS: BASO % 0.1 % (0-2.0); HEMATOCRIT 38.9 % (32.4-45.2); HEMOGLOBIN 13.3 GM/dL (10.7-15.3); LYMPH % 13.3 % (8-40); MCH 29.4 pg (25.7-33.7); MCHC 34.2 g/dl (32.0-36.0); MEAN PLT VOLUME 8.3 fl (7.5-11.1); MONO % 11.6 % (3.8-10.2); PLATELET COUNT 224 10^3/uL (134-434); RBC 4.52 M/mm3 (3.60-5.2); RDW 13.4 % (11.6-15.6); WHITE BLOOD COUNT 7.4 K/mm3 (4.0-10.0)
[2023-09-29 10:39] LABS: POTASSIUM 3.9 mmol/L (3.5-5.1)
[2023-09-29] MEDS ORDERED: VANCOMYCIN 1,000 MG VIAL (RESTRICTED TO ID ONLY) ONE (10:43)
[2023-09-29 10:49] LABS: ALBUMIN 3.2 g/dl (3.4-5.0); BLOOD UREA NITROGEN 13.9 mg/dL (7-18); CALCIUM 8.9 mg/dL (8.5-10.1); MAGNESIUM 1.7 mg/dL (1.8-2.4)
[2023-09-29 10:52] LABS: CREATININE 0.6 mg/dL (0.55-1.3); PHOSPHOROUS 2.6 mg/dL (2.5-4.9)
[2023-09-29 10:53] LABS: BILIRUBIN,TOTAL 0.7 mg/dL (0.2-1); TOT PROT 6.6 g/dl (6.4-8.2)
[2023-09-29] MEDS ORDERED: ceFAZolin SODIUM 1 GM VIAL IVPB ONE ×2 (11:05→11:30)
[2023-09-29] MEDS ORDERED: HYDROmorphone HCl 2 MG/ML VIAL ONE (11:28)
[2023-09-29] MEDS ORDERED: ACETAMINOPHEN INJECTION 100 ML IVPB ONE (11:32)
[2023-09-29] MEDS ORDERED: VANCOMYCIN 1,000 MG VIAL (RESTRICTED TO ID ONLY) IVPB ONE (11:35)
[2023-09-29] MEDS ORDERED: PROPOFOL 40 ML ONE (11:39)
[2023-09-29] MEDS ORDERED: PHENYLEPHRINE HCL 10 MG/1 ML SINGLE DOSE VIAL ONE (11:51)
[2023-09-29] MEDS ORDERED: LACTATED RINGERS SOLUTION 1,000 ML IV SCH (12:15)
[2023-09-29] MEDS ORDERED: CARBIDOPA/LEVODOPA 25/100 TABLET (FP) PO SCH (13:00)
[2023-09-29] MEDS ORDERED: ALBUTEROL SO4 HFA INHALER IH PRN (13:18)
[2023-09-29] MEDS ORDERED: DEXTROSE 5%-LACTATED RINGERS 1,000 ML IV SCH (13:18)
[2023-09-29] MEDS ORDERED: MAGNESIUM SULF 50% (8.12 MEQ/2 ML-1 GM VIAL) IVPB ONE (17:07)
[2023-09-29] MEDS ORDERED: CEFAZOLIN SODIUM 2 GM in DEXTROSE 5%-WATER 100 ML IVPB SCH (19:00)
[2023-09-29] MEDS: CEFAZOLIN SODIUM 2 GM in DEXTROSE 5%-WATER 100 ML IVPB SCH (20:51)
[2023-09-29] MEDS: OLANZapine 2.5 MG TABLET PO SCH ×2 (21:00→21:31)
[2023-09-29] MEDS: LIDOCAINE PATCH REMOVAL MC SCH (21:01)
[2023-09-30] MEDS: CEFAZOLIN SODIUM 2 GM in DEXTROSE 5%-WATER 100 ML IVPB SCH (03:21)
[2023-09-30] MEDS ORDERED: ASPIRIN 325 MG TABLET PO SCH (08:00)
[2023-09-30 10:07] LABS: BASO % 0.1 % (0-2.0); EOS % 0.2 % (0-4.5); HEMATOCRIT 37.8 % (32.4-45.2); HEMOGLOBIN 12.3 GM/dL (10.7-15.3); LYMPH % 9.2 % (8-40); MCH 28.4 pg (25.7-33.7); MCHC 32.7 g/dl (32.0-36.0); MEAN PLT VOLUME 8.3 fl (7.5-11.1); MONO % 8.3 % (3.8-10.2); NEUT % 82.2 % (42.8-82.8); PLATELET COUNT 232 10^3/uL (134-434); RBC 4.34 M/mm3 (3.60-5.2); RDW 13.6 % (11.6-15.6); WHITE BLOOD COUNT 12.8 K/mm3 (4.0-10.0)
[2023-09-30] MEDS: lamoTRIgine 25 MG TABLET PO SCH ×2 (10:08→23:18)
[2023-09-30] MEDS: POLYETHYLENE GLYCOL (HEALTHYLAX) 3350 17 GM PACKET PO SCH (10:08)
[2023-09-30] MEDS: ENOXAPARIN NA (PORCINE) 40 MG/0.4 ML DISP.SYRIN SQ SCH (10:08)
[2023-09-30] MEDS: CARBIDOPA/LEVODOPA 25/100 TABLET (FP) PO SCH ×3 (10:08→17:33)
[2023-09-30] MEDS: ASPIRIN 325 MG TABLET PO SCH (10:08)
[2023-09-30 10:23] LABS: POTASSIUM 3.9 mmol/L (3.5-5.1)
[2023-09-30 10:25] LABS: CALCIUM 7.9 mg/dL (8.5-10.1)
[2023-09-30 10:26] LABS: ALBUMIN 2.8 g/dl (3.4-5.0); BLOOD UREA NITROGEN 11.5 mg/dL (7-18)
[2023-09-30 10:29] LABS: CREATININE 0.7 mg/dL (0.55-1.3)
[2023-09-30 10:31] LABS: BILIRUBIN,TOTAL 0.7 mg/dL (0.2-1); TOT PROT 6.3 g/dl (6.4-8.2)
[2023-09-30] MEDS ORDERED: ACETAMINOPHEN 325 MG TABLET (FP) PO PRN ×2 (14:17→14:19)
[2023-09-30] MEDS: CARBIDOPA/LEVODOPA 25/250 TABLET (FP) PO SCH ×2 (18:44→23:17)
[2023-09-30] MEDS: LIDOCAINE PATCH REMOVAL MC SCH (23:17)
[2023-09-30] MEDS: MELATONIN 5 MG TABLETS PO PRN (23:17)
[2023-09-30] MEDS: OLANZapine 2.5 MG TABLET PO SCH (23:17)
[2023-09-30] MEDS ORDERED: oxyCODONE HCL 5 MG TABLET PO PRN (23:28)
[2023-10-01] MEDS: ASPIRIN 325 MG TABLET PO SCH (10:46)
[2023-10-01] MEDS: CARBIDOPA/LEVODOPA 25/250 TABLET (FP) PO SCH ×4 (10:46→22:36)
[2023-10-01] MEDS: ENOXAPARIN NA (PORCINE) 40 MG/0.4 ML DISP.SYRIN SQ SCH ×2 (10:46→11:18)
[2023-10-01] MEDS: POLYETHYLENE GLYCOL (HEALTHYLAX) 3350 17 GM PACKET PO SCH (10:46)
[2023-10-01] MEDS: lamoTRIgine 25 MG TABLET PO SCH ×3 (10:47→22:39)
[2023-10-01 11:18] LABS: HEMATOCRIT 33.6 % (32.4-45.2); HEMOGLOBIN 11.2 GM/dL (10.7-15.3); MCH 29.3 pg (25.7-33.7); MCHC 33.3 g/dl (32.0-36.0); MEAN PLT VOLUME 8.3 fl (7.5-11.1); PLATELET COUNT 210 10^3/uL (134-434); RBC 3.82 M/mm3 (3.60-5.2); WHITE BLOOD COUNT 9.3 K/mm3 (4.0-10.0)
[2023-10-01 16:57] VITALS: RESP 18
[2023-10-01] MEDS: ACETAMINOPHEN 325 MG TABLET (FP) PO SCH (17:00)
[2023-10-01] MEDS ORDERED: SENNOSIDES 8.8 MG/5 ML SYRUP PO SCH (22:00)
[2023-10-01] MEDS: oxyCODONE HCL 5 MG TABLET PO PRN (22:37)
[2023-10-01] MEDS: LIDOCAINE PATCH REMOVAL MC SCH (22:38)
[2023-10-01] MEDS: OLANZapine 2.5 MG TABLET PO SCH (22:38)
[2023-10-02] MEDS: ACETAMINOPHEN 325 MG TABLET (FP) PO SCH ×2 (05:03→10:47)
[2023-10-02] MEDS: MELATONIN 5 MG TABLETS PO PRN (07:33)
[2023-10-02] MEDS: lamoTRIgine 25 MG TABLET PO SCH (10:46)
[2023-10-02] MEDS: POLYETHYLENE GLYCOL (HEALTHYLAX) 3350 17 GM PACKET PO SCH (10:46)
[2023-10-02] MEDS: oxyCODONE HCL 5 MG TABLET PO PRN (10:46)
[2023-10-02] MEDS: ASPIRIN 325 MG TABLET PO SCH (10:46)
[2023-10-02] MEDS: CARBIDOPA/LEVODOPA 25/250 TABLET (FP) PO SCH ×2 (10:46→13:58)
[2023-10-02] MEDS: ENOXAPARIN NA (PORCINE) 40 MG/0.4 ML DISP.SYRIN SQ SCH (10:48)
[2023-10-02 14:43] VITALS: BP 103/63; PULSE 96; TEMP 97.6
== END 2023-10-02 16:06 | DRG 521 ==
LOC: JER 03:16 → JERBED 06:31 → J5S 17:56
PROVIDERS: ADMIT Internal Medicine; ATTEND Internal Medicine
PROC: 0SRS0JZ Replacement of Left Hip Joint, Femoral Surface with Synthetic Substitute, Open Approach (ICD-10-PCS; principal; 2023-09-29 11:30)
DX: S72.002A Fracture of unspecified part of neck of left femur, initial encounter for closed fracture (principal); U07.1 COVID-19; I10 Essential (primary) hypertension; J45.909 Unspecified asthma, uncomplicated; M54.9 Dorsalgia, unspecified; G20.A1 Parkinson's disease without dyskinesia, without mention of fluctuations; M81.0 Age-related osteoporosis without current pathological fracture; K59.00 Constipation, unspecified; W01.0XXA Fall on same level from slipping, tripping and stumbling without subsequent striking against object, initial encounter; Y92.098 Other place in other non-institutional residence as the place of occurrence of the external cause; Y99.9 Unspecified external cause status; Z85.51 Personal history of malignant neoplasm of bladder
CPT/HCPCS: 0241U-QW; 36415; 70450-TC; 71045-TC-FY; 72125-TC; 72170-TC-FY; 73502-TC-LT-FY; 73521-TC-FY; 80048; 80053; 81003; 83735; 84100; 84484; 85025; 85027; 85610; 86850; 86900; 86901; 87086; 87635; 88305-TC; 88311-TC; 93005; 93010; 94010; 94760; 97116-GP; 97161-GP; 99285-25; C1776

== ENCOUNTER 2023-11-19 12:26 | Inpatient (IN) | payer BC, OTHER ==
[2023-11-19 13:30] LABS: HEMATOCRIT 39.9 % (32.4-45.2); HEMOGLOBIN 12.9 GM/dL (10.7-15.3); MCH 27.4 pg (25.7-33.7); MCHC 32.3 g/dl (32.0-36.0); MEAN CELL VOLUME 84.9 fl (80-96); MEAN PLT VOLUME 8.4 fl (7.5-11.1); PLATELET COUNT 330 10^3/uL (134-434); RDW 13.7 % (11.6-15.6); WHITE BLOOD COUNT 28.1 K/mm3 (4.0-10.0)
[2023-11-19] MEDS ORDERED: ACETAMINOPHEN INJECTION 100 ML IVPB ONE (13:37)
[2023-11-19 13:38] LABS: INR 1.34 (0.83-1.09); PROTHROMBIN TIME (PATIENT) 15.5 SEC (9.7-13.0)
[2023-11-19 13:41] LABS: ACTIVATED PTT 25.3 SECONDS (25.2-36.5)
[2023-11-19] MEDS: ACETAMINOPHEN 1000 MG/100 ML BAG IVPB ONE (13:44)
[2023-11-19] MEDS: LACTATED RINGERS SOLUTION 1000 ML INFUS.BAG IV ONE (13:44)
[2023-11-19 13:50] LABS: ANISOCYTOSIS 1+; MACROCYTOSIS 0
[2023-11-19 14:11] LABS: EPI CELLS >36 /uL (0-25.1); HYALINE CASTS 51 /uL (0-3.1); PH,URINE >= 9.0 (5.0-8.0); URINE APPEARANCE TURBID; URINE BACTERIA >9,000 /uL (0-1359); URINE BILIRUBIN NEGATIVE (NEGATIVE); URINE COLOR DK YELLOW; URINE GLUCOSE (UA) NEGATIVE (NEGATIVE); URINE KETONE NEGATIVE (NEGATIVE); URINE LEUK ESTERASE 3+ (NEGATIVE); URINE NITRITE NEGATIVE (NEGATIVE); URINE PROTEIN 3+ (NEGATIVE); URINE WBC 13143 /uL (0-25.8)
[2023-11-19 14:13] LABS: URINE RBC 276.9 /uL (0-23.9)
[2023-11-19 14:14] LABS: YEAST NEGATIVE (NEGATIVE)
[2023-11-19 14:20] LABS: LACTIC ACID 2.1 mmol/L (0.4-2.0)
[2023-11-19 14:20] LABS: ALBUMIN 2.7 g/dl (3.4-5.0); BILIRUBIN,TOTAL 0.7 mg/dL (0.2-1); CALCIUM 8.6 mg/dL (8.5-10.1); CREATININE 0.8 mg/dL (0.55-1.3); MAGNESIUM 2.6 mg/dL (1.8-2.4); PHOSPHOROUS 3.1 mg/dL (2.5-4.9); TOT PROT 7.1 g/dl (6.4-8.2)
[2023-11-19 14:27] VITALS: BMI 25.4
[2023-11-19] MEDS ORDERED: CEFTRIAXONE 1 GM/50 ML BAG ONE (15:11)
[2023-11-19] MEDS ORDERED: LACTATED RINGERS SOLUTION 1,000 ML/1,000 ML INFUS.BAG IV SCH (15:30)
[2023-11-19] MEDS ORDERED: ALBUTEROL SO4 HFA INHALER IH PRN ×2 (16:02→18:30)
[2023-11-19] MEDS ORDERED: ACETAMINOPHEN 325 MG TABLET (FP) PO PRN (16:02)
[2023-11-19] MEDS ORDERED: PROPOFOL 20 ML ONE (17:40)
[2023-11-19] MEDS ORDERED: LACTATED RINGERS SOLUTION 1,000 ML IV SCH ×2 (18:00→18:15)
[2023-11-19] MEDS ORDERED: ONDANSETRON 4 MG/2 ML VIAL IVPUSH PRN (18:06)
[2023-11-19] MEDS: LACTATED RINGERS SOLUTION 1,000 ML/1,000 ML INFUS.BAG IV SCH (18:34)
[2023-11-19] MEDS ORDERED: oxyCODONE HCL 5 MG TABLET PO PRN (18:40)
[2023-11-19] MEDS: lamoTRIgine 25 MG TABLET PO SCH (21:28)
[2023-11-19] MEDS: ENTACAPONE 200 MG TABLET PO SCH (21:29)
[2023-11-19] MEDS: OLANZapine 2.5 MG TABLET PO SCH (21:29)
[2023-11-19] MEDS ORDERED: OLANZapine 2.5 MG TABLET PO SCH (22:00)
[2023-11-19] MEDS ORDERED: ENTACAPONE 200 MG TABLET PO SCH (22:00)
[2023-11-19] MEDS ORDERED: lamoTRIgine 25 MG TABLET PO SCH (22:00)
[2023-11-19] MEDS ORDERED: SENNOSIDES 8.8 MG/5 ML SYRUP PO SCH ×2 (22:00)
[2023-11-20] MEDS ORDERED: ENOXAPARIN NA (PORCINE) 40 MG/0.4 ML DISP.SYRIN SQ SCH (10:00)
[2023-11-20] MEDS ORDERED: FLU VACCINE (FLULAVAL) PF 60 MCG/0.5 ML SYRINGE 2023-2024 IM ONE (10:00)
[2023-11-20] MEDS ORDERED: ASPIRIN 325 MG TABLET PO SCH ×2 (10:00)
[2023-11-20] MEDS ORDERED: CEFTRIAXONE 1 GM in DEXTROSE 5%-WATER - 50 ML IVPB SCH (10:00)
[2023-11-20] MEDS: CEFTRIAXONE 1 GM in DEXTROSE 5%-WATER - 50 ML IVPB SCH (10:26)
[2023-11-20] MEDS: POLYETHYLENE GLYCOL (HEALTHYLAX) 3350 17 GM PACKET PO SCH (10:26)
[2023-11-20] MEDS: ASPIRIN 325 MG TABLET PO SCH (10:26)
[2023-11-20] MEDS: ENOXAPARIN NA (PORCINE) 40 MG/0.4 ML DISP.SYRIN SQ SCH (10:45)
[2023-11-20 13:09] LABS: HEMATOCRIT 31.3 % (32.4-45.2); HEMOGLOBIN 10.6 GM/dL (10.7-15.3); MCH 28.3 pg (25.7-33.7); MCHC 33.9 g/dl (32.0-36.0); MEAN CELL VOLUME 83.7 fl (80-96); MEAN PLT VOLUME 8.2 fl (7.5-11.1); PLATELET COUNT 277 10^3/uL (134-434); RBC 3.74 M/mm3 (3.60-5.2); RDW 13.9 % (11.6-15.6); WHITE BLOOD COUNT 20.7 K/mm3 (4.0-10.0)
[2023-11-20 13:23] LABS: CHLORIDE 105 mmol/L (98-107); POTASSIUM 3.9 mmol/L (3.5-5.1); SODIUM 139 mmol/L (136-145)
[2023-11-20 13:25] LABS: CALCIUM 8.1 mg/dL (8.5-10.1)
[2023-11-20 13:26] LABS: ANION GAP 5 mmol/L (4-13); BLOOD UREA NITROGEN 19.6 mg/dL (7-18); CO2 28 mmol/L (21-32); GLUCOSE,RANDOM 78 mg/dL (74-106); MAGNESIUM 1.8 mg/dL (1.8-2.4)
[2023-11-20 13:28] LABS: ALBUMIN 2.2 g/dl (3.4-5.0)
[2023-11-20 13:29] LABS: CREATININE 0.5 mg/dL (0.55-1.3); SGOT/AST 10 U/L (15-37); SGPT/ALT < 6 U/L (13-61)
[2023-11-20 13:30] LABS: TOT PROT 5.5 g/dl (6.4-8.2)
[2023-11-20 13:31] LABS: BILIRUBIN,TOTAL 0.6 mg/dL (0.2-1)
[2023-11-20 13:34] LABS: ALK PHOS 125 U/L (45-117)
[2023-11-20 13:44] LABS: ANISOCYTOSIS 3+; MACROCYTOSIS 0
[2023-11-20] MEDS: PIPERACILLIN/TAZOB 4.5 GM 4.5 GM in DEXTROSE 5%-WATER 100 ML IVPB SCH (14:20)
[2023-11-20] MEDS: MIRTAZAPINE 15 MG TABLET (FP) PO SCH (16:10)
[2023-11-20] MEDS: ACETAMINOPHEN 325 MG TABLET (FP) PO PRN (21:43)
[2023-11-21] MEDS: ENTACAPONE 200 MG TABLET PO ONE (01:08)
[2023-11-21] MEDS: OLANZapine 2.5 MG TABLET PO ONE (01:08)
[2023-11-21] MEDS: lamoTRIgine 25 MG TABLET PO ONE (01:09)
[2023-11-21 08:51] LABS: CHLORIDE 106 mmol/L (98-107); SODIUM 142 mmol/L (136-145)
[2023-11-21 08:52] LABS: CALCIUM 8.2 mg/dL (8.5-10.1)
[2023-11-21 08:53] LABS: ALBUMIN 2.1 g/dl (3.4-5.0); ANION GAP 9 mmol/L (4-13); BLOOD UREA NITROGEN 19.1 mg/dL (7-18); CO2 26 mmol/L (21-32); GLUCOSE,RANDOM 79 mg/dL (74-106); MAGNESIUM 2.1 mg/dL (1.8-2.4)
[2023-11-21 08:56] LABS: CREATININE 0.5 mg/dL (0.55-1.3); SGOT/AST 10 U/L (15-37)
[2023-11-21 08:57] LABS: TOT PROT 5.4 g/dl (6.4-8.2)
[2023-11-21 08:58] LABS: BILIRUBIN,TOTAL 0.6 mg/dL (0.2-1)
[2023-11-21 08:59] LABS: ALK PHOS 105 U/L (45-117)
[2023-11-21 09:01] LABS: SGPT/ALT < 6 U/L (13-61)
[2023-11-21 09:08] LABS: BASO % 0.3 % (0-2.0); EOS % 1.5 % (0-4.5); HEMATOCRIT 31.6 % (32.4-45.2); HEMOGLOBIN 10.1 GM/dL (10.7-15.3); LYMPH % 9.6 % (8-40); MCHC 31.8 g/dl (32.0-36.0); MEAN PLT VOLUME 8.4 fl (7.5-11.1); MONO % 6.1 % (3.8-10.2); NEUT % 82.5 % (42.8-82.8); PLATELET COUNT 309 10^3/uL (134-434); RBC 3.72 M/mm3 (3.60-5.2); RDW 13.9 % (11.6-15.6); WHITE BLOOD COUNT 16.3 K/mm3 (4.0-10.0)
[2023-11-21] MEDS: AMINO ACIDS 4.25%/D5W 1,000 ML IV SCH (13:10)
[2023-11-22 07:43] LABS: BASO % 0.1 % (0-2.0); EOS % 1.6 % (0-4.5); HEMOGLOBIN 10.6 GM/dL (10.7-15.3); LYMPH % 9.6 % (8-40); MCHC 33.1 g/dl (32.0-36.0); MEAN CELL VOLUME 84.7 fl (80-96); MEAN PLT VOLUME 8.1 fl (7.5-11.1); MONO % 6.5 % (3.8-10.2); NEUT % 82.2 % (42.8-82.8); PLATELET COUNT 364 10^3/uL (134-434); RBC 3.78 M/mm3 (3.60-5.2); RDW 13.7 % (11.6-15.6); WHITE BLOOD COUNT 15.9 K/mm3 (4.0-10.0)
[2023-11-22 07:58] LABS: CHLORIDE 105 mmol/L (98-107); POTASSIUM 3.9 mmol/L (3.5-5.1); SODIUM 139 mmol/L (136-145)
[2023-11-22 08:03] LABS: ALBUMIN 2.2 g/dl (3.4-5.0); ANION GAP 5 mmol/L (4-13); BLOOD UREA NITROGEN 20.7 mg/dL (7-18); CALCIUM 8.4 mg/dL (8.5-10.1); CO2 29 mmol/L (21-32); GLUCOSE,RANDOM 100 mg/dL (74-106); MAGNESIUM 1.9 mg/dL (1.8-2.4)
[2023-11-22 08:06] LABS: CREATININE 0.5 mg/dL (0.55-1.3)
[2023-11-22 08:07] LABS: SGOT/AST 13 U/L (15-37)
[2023-11-22 08:08] LABS: BILIRUBIN,TOTAL 0.6 mg/dL (0.2-1); TOT PROT 5.7 g/dl (6.4-8.2)
[2023-11-22 08:09] LABS: ALK PHOS 110 U/L (45-117)
[2023-11-22 08:15] LABS: SGPT/ALT < 6 U/L (13-61)
[2023-11-22] MEDS: SODIUM CHLORIDE 1,000 ML IV SCH (10:40)
[2023-11-23 08:52] LABS: BASO % 0.3 % (0-2.0); EOS % 1.2 % (0-4.5); HEMATOCRIT 29.8 % (32.4-45.2); LYMPH % 9.7 % (8-40); MCHC 33.5 g/dl (32.0-36.0); MEAN CELL VOLUME 83.5 fl (80-96); MEAN PLT VOLUME 7.8 fl (7.5-11.1); MONO % 4.5 % (3.8-10.2); NEUT % 84.3 % (42.8-82.8); PLATELET COUNT 395 10^3/uL (134-434); RBC 3.57 M/mm3 (3.60-5.2); RDW 13.9 % (11.6-15.6); WHITE BLOOD COUNT 15.5 K/mm3 (4.0-10.0)
[2023-11-23 09:08] LABS: POTASSIUM 3.8 mmol/L (3.5-5.1)
[2023-11-23 09:11] LABS: ALBUMIN 2.1 g/dl (3.4-5.0); BLOOD UREA NITROGEN 17.2 mg/dL (7-18); CALCIUM 8.6 mg/dL (8.5-10.1)
[2023-11-23 09:14] LABS: CREATININE 0.4 mg/dL (0.55-1.3)
[2023-11-23 09:16] LABS: BILIRUBIN,TOTAL 0.5 mg/dL (0.2-1); TOT PROT 5.4 g/dl (6.4-8.2)
[2023-11-24 09:20] LABS: HEMATOCRIT 32.7 % (32.4-45.2); HEMOGLOBIN 10.9 GM/dL (10.7-15.3); MCH 27.8 pg (25.7-33.7); MCHC 33.3 g/dl (32.0-36.0); MEAN CELL VOLUME 83.6 fl (80-96); MEAN PLT VOLUME 7.7 fl (7.5-11.1); PLATELET COUNT 481 10^3/uL (134-434); RBC 3.91 M/mm3 (3.60-5.2); WHITE BLOOD COUNT 15.4 K/mm3 (4.0-10.0)
[2023-11-24 09:50] LABS: CHLORIDE 108 mmol/L (98-107); POTASSIUM 3.6 mmol/L (3.5-5.1); SODIUM 141 mmol/L (136-145)
[2023-11-24 10:02] LABS: ALBUMIN 2.4 g/dl (3.4-5.0); ANION GAP 7 mmol/L (4-13); CALCIUM 8.4 mg/dL (8.5-10.1); CO2 26 mmol/L (21-32); GLUCOSE,RANDOM 94 mg/dL (74-106); MAGNESIUM 2.1 mg/dL (1.8-2.4)
[2023-11-24 10:05] LABS: CREATININE 0.5 mg/dL (0.55-1.3)
[2023-11-24 10:06] LABS: SGOT/AST 12 U/L (15-37)
[2023-11-24 10:07] LABS: BILIRUBIN,TOTAL 0.6 mg/dL (0.2-1)
[2023-11-24 10:08] LABS: ALK PHOS 111 U/L (45-117)
[2023-11-24 10:42] LABS: BLOOD UREA NITROGEN 14.6 mg/dL (7-18)
[2023-11-24 10:45] LABS: SGPT/ALT < 6 U/L (13-61)
[2023-11-24] MEDS: AMINO ACIDS/PROTEIN HYDROLYS 30 ML LIQUID.PKT PO SCH (16:40)
[2023-11-24] MEDS: MULTIVIT INJ. ADULT COMBO WITH VIT K 1 COMBO 10 ML VIAL IV SCH (17:56)
[2023-11-24] MEDS: AMINO ACIDS 4.25%/D5W 1,000 ML IV SCH (17:57)
[2023-11-24] MEDS: MULTIVIT INJECTION ADULT 10 ML in AMINO ACIDS 4.25%/D5W 1,000 ML IV SCH (18:36)
[2023-11-25 08:30] LABS: HEMATOCRIT 30.5 % (32.4-45.2); MCH 27.2 pg (25.7-33.7); MCHC 32.8 g/dl (32.0-36.0); MEAN PLT VOLUME 7.7 fl (7.5-11.1); PLATELET COUNT 432 10^3/uL (134-434); RBC 3.67 M/mm3 (3.60-5.2); RDW 13.9 % (11.6-15.6)
[2023-11-25 09:02] LABS: CHLORIDE 107 mmol/L (98-107); POTASSIUM 3.3 mmol/L (3.5-5.1); SODIUM 139 mmol/L (136-145)
[2023-11-25 09:08] LABS: ALBUMIN 2.3 g/dl (3.4-5.0); BLOOD UREA NITROGEN 14.6 mg/dL (7-18); CALCIUM 8.6 mg/dL (8.5-10.1); GLUCOSE,RANDOM 88 mg/dL (74-106)
[2023-11-25 09:09] LABS: ANION GAP 7 mmol/L (4-13); CO2 26 mmol/L (21-32); MAGNESIUM 1.8 mg/dL (1.8-2.4)
[2023-11-25 09:11] LABS: CREATININE 0.4 mg/dL (0.55-1.3); SGOT/AST 12 U/L (15-37); SGPT/ALT < 6 U/L (13-61)
[2023-11-25 09:13] LABS: BILIRUBIN,TOTAL 0.6 mg/dL (0.2-1); TOT PROT 5.7 g/dl (6.4-8.2)
[2023-11-25 09:14] LABS: ALK PHOS 100 U/L (45-117)
[2023-11-26 08:06] LABS: HEMATOCRIT 30.9 % (32.4-45.2); HEMOGLOBIN 10.1 GM/dL (10.7-15.3); MCH 27.4 pg (25.7-33.7); MCHC 32.8 g/dl (32.0-36.0); MEAN CELL VOLUME 83.6 fl (80-96); MEAN PLT VOLUME 7.6 fl (7.5-11.1); PLATELET COUNT 461 10^3/uL (134-434); RBC 3.69 M/mm3 (3.60-5.2); RDW 13.8 % (11.6-15.6)
[2023-11-26 08:21] LABS: POTASSIUM 3.3 mmol/L (3.5-5.1)
[2023-11-26 08:23] LABS: CALCIUM 8.5 mg/dL (8.5-10.1)
[2023-11-26 08:24] LABS: ALBUMIN 2.2 g/dl (3.4-5.0); BLOOD UREA NITROGEN 13.1 mg/dL (7-18); MAGNESIUM 1.9 mg/dL (1.8-2.4)
[2023-11-26 08:27] LABS: CREATININE 0.5 mg/dL (0.55-1.3)
[2023-11-26 08:28] LABS: BILIRUBIN,TOTAL 0.5 mg/dL (0.2-1); TOT PROT 5.7 g/dl (6.4-8.2)
[2023-11-26] MEDS: AMINO ACIDS 4.25%/D5W 1,000 ML IV SCH ×3 (08:31→18:34)
[2023-11-27 08:28] LABS: HEMATOCRIT 28.5 % (32.4-45.2); HEMOGLOBIN 9.6 GM/dL (10.7-15.3); MCH 28.2 pg (25.7-33.7); MCHC 33.7 g/dl (32.0-36.0); MEAN CELL VOLUME 83.6 fl (80-96); MEAN PLT VOLUME 7.6 fl (7.5-11.1); PLATELET COUNT 469 10^3/uL (134-434); RBC 3.41 M/mm3 (3.60-5.2); WHITE BLOOD COUNT 10.6 K/mm3 (4.0-10.0)
[2023-11-27 08:47] LABS: CHLORIDE 109 mmol/L (98-107); POTASSIUM 3.5 mmol/L (3.5-5.1); SODIUM 143 mmol/L (136-145)
[2023-11-27 08:49] LABS: ALBUMIN 2.1 g/dl (3.4-5.0); ANION GAP 6 mmol/L (4-13); CALCIUM 8.6 mg/dL (8.5-10.1); CO2 28 mmol/L (21-32); GLUCOSE,RANDOM 86 mg/dL (74-106)
[2023-11-27 08:53] LABS: CREATININE 0.4 mg/dL (0.55-1.3); SGOT/AST 13 U/L (15-37)
[2023-11-27 08:54] LABS: BILIRUBIN,TOTAL 0.4 mg/dL (0.2-1); TOT PROT 5.6 g/dl (6.4-8.2)
[2023-11-27 08:55] LABS: ALK PHOS 94 U/L (45-117)
[2023-11-27 08:59] LABS: SGPT/ALT < 6 U/L (13-61)
[2023-11-27] MEDS: MINERAL OIL/PET HY-PHL TOPICAL OINTMENT 454 GM JAR TP SCH (14:40)
[2023-11-27] MEDS: AMOX TR/POT CLAV 875MG/125MG TABLETS (FP) PO SCH (17:27)
[2023-11-28 08:22] LABS: HEMATOCRIT 30.6 % (32.4-45.2); HEMOGLOBIN 10.1 GM/dL (10.7-15.3); MCH 27.7 pg (25.7-33.7); MCHC 32.9 g/dl (32.0-36.0); MEAN PLT VOLUME 7.3 fl (7.5-11.1); PLATELET COUNT 473 10^3/uL (134-434); RBC 3.64 M/mm3 (3.60-5.2); RDW 13.9 % (11.6-15.6)
[2023-11-28 08:36] LABS: POTASSIUM 3.7 mmol/L (3.5-5.1); SODIUM 142 mmol/L (136-145)
[2023-11-28 08:38] LABS: ALBUMIN 2.4 g/dl (3.4-5.0); CALCIUM 8.9 mg/dL (8.5-10.1); CO2 30 mmol/L (21-32); GLUCOSE,RANDOM 82 mg/dL (74-106); MAGNESIUM 1.9 mg/dL (1.8-2.4)
[2023-11-28 08:41] LABS: SGOT/AST 16 U/L (15-37); SGPT/ALT < 6 U/L (13-61)
[2023-11-28 08:43] LABS: BILIRUBIN,TOTAL 0.4 mg/dL (0.2-1)
[2023-11-28 08:44] LABS: ALK PHOS 113 U/L (45-117); ANION GAP 4 mmol/L (4-13); CHLORIDE 108 mmol/L (98-107); CREATININE 0.4 mg/dL (0.55-1.3)
[2023-11-29 08:25] LABS: HEMATOCRIT 31.7 % (32.4-45.2); HEMOGLOBIN 10.3 GM/dL (10.7-15.3); MCH 27.5 pg (25.7-33.7); MCHC 32.6 g/dl (32.0-36.0); MEAN CELL VOLUME 84.4 fl (80-96); MEAN PLT VOLUME 7.5 fl (7.5-11.1); PLATELET COUNT 449 10^3/uL (134-434); RBC 3.75 M/mm3 (3.60-5.2); RDW 14.1 % (11.6-15.6); WHITE BLOOD COUNT 8.5 K/mm3 (4.0-10.0)
[2023-11-29 08:49] LABS: CHLORIDE 109 mmol/L (98-107); POTASSIUM 3.9 mmol/L (3.5-5.1); SODIUM 144 mmol/L (136-145)
[2023-11-29 08:51] LABS: ALBUMIN 2.4 g/dl (3.4-5.0); CALCIUM 9.1 mg/dL (8.5-10.1)
[2023-11-29 08:52] LABS: ANION GAP 5 mmol/L (4-13); BLOOD UREA NITROGEN 16.1 mg/dL (7-18); CO2 31 mmol/L (21-32); GLUCOSE,RANDOM 88 mg/dL (74-106); MAGNESIUM 2.1 mg/dL (1.8-2.4)
[2023-11-29 08:54] LABS: CREATININE 0.4 mg/dL (0.55-1.3)
[2023-11-29 08:55] LABS: SGOT/AST 16 U/L (15-37)
[2023-11-29 08:56] LABS: BILIRUBIN,TOTAL 0.4 mg/dL (0.2-1); TOT PROT 5.9 g/dl (6.4-8.2)
[2023-11-29 08:57] LABS: ALK PHOS 116 U/L (45-117); SGPT/ALT < 6 U/L (13-61)
[2023-11-30 08:35] LABS: HEMATOCRIT 30.4 % (32.4-45.2); HEMOGLOBIN 10.1 GM/dL (10.7-15.3); MCH 27.6 pg (25.7-33.7); MCHC 33.1 g/dl (32.0-36.0); MEAN CELL VOLUME 83.5 fl (80-96); MEAN PLT VOLUME 7.8 fl (7.5-11.1); PLATELET COUNT 428 10^3/uL (134-434); RBC 3.64 M/mm3 (3.60-5.2); RDW 14.4 % (11.6-15.6); WHITE BLOOD COUNT 8.9 K/mm3 (4.0-10.0)
[2023-11-30 09:04] LABS: CHLORIDE 110 mmol/L (98-107); SODIUM 143 mmol/L (136-145)
[2023-11-30 09:12] LABS: ALBUMIN 2.4 g/dl (3.4-5.0); GLUCOSE,RANDOM 85 mg/dL (74-106)
[2023-11-30 09:13] LABS: BLOOD UREA NITROGEN 15.4 mg/dL (7-18)
[2023-11-30 09:14] LABS: ANION GAP 4 mmol/L (4-13); CO2 29 mmol/L (21-32); MAGNESIUM 2.1 mg/dL (1.8-2.4)
[2023-11-30 09:15] LABS: CREATININE 0.4 mg/dL (0.55-1.3); SGOT/AST 11 U/L (15-37)
[2023-11-30 09:17] LABS: BILIRUBIN,TOTAL 0.4 mg/dL (0.2-1); TOT PROT 5.7 g/dl (6.4-8.2)
[2023-11-30 09:18] LABS: ALK PHOS 116 U/L (45-117)
[2023-11-30 09:22] LABS: SGPT/ALT < 6 U/L (13-61)
[2023-11-30] MEDS: DRONABINOL 2.5 MG CAPSULE PO SCH (10:54)
[2023-11-30] MEDS: ASCORBIC ACID 500 MG TABLET (FP) PO SCH (13:26)
[2023-11-30] MEDS: ZINC SULFATE 220 MG CAPSULE (FP) PO SCH (13:26)
[2023-11-30] MEDS: MULTIVIT-MINERALS ORAL LIQUID PO SCH (13:46)
[2023-12-01 11:13] LABS: BASO % 0.5 % (0-2.0); EOS % 3.1 % (0-4.5); HEMATOCRIT 31.3 % (32.4-45.2); HEMOGLOBIN 10.3 GM/dL (10.7-15.3); LYMPH % 16.6 % (8-40); MCH 27.6 pg (25.7-33.7); MCHC 32.8 g/dl (32.0-36.0); MEAN PLT VOLUME 7.6 fl (7.5-11.1); MONO % 5.5 % (3.8-10.2); NEUT % 74.3 % (42.8-82.8); PLATELET COUNT 436 10^3/uL (134-434); RBC 3.72 M/mm3 (3.60-5.2); RDW 15.1 % (11.6-15.6); WHITE BLOOD COUNT 7.9 K/mm3 (4.0-10.0)
[2023-12-01 11:27] LABS: POTASSIUM 4.2 mmol/L (3.5-5.1)
[2023-12-01 11:31] LABS: ALBUMIN 2.4 g/dl (3.4-5.0); BLOOD UREA NITROGEN 16.7 mg/dL (7-18); CALCIUM 9.3 mg/dL (8.5-10.1)
[2023-12-01 11:34] LABS: CREATININE 0.5 mg/dL (0.55-1.3)
[2023-12-01 11:35] LABS: BILIRUBIN,TOTAL 0.4 mg/dL (0.2-1)
[2023-12-01 11:36] LABS: TOT PROT 6.1 g/dl (6.4-8.2)
[2023-12-02 09:21] LABS: CHLORIDE 108 mmol/L (98-107); POTASSIUM 4.2 mmol/L (3.5-5.1); SODIUM 144 mmol/L (136-145)
[2023-12-02 09:26] LABS: BLOOD UREA NITROGEN 18.3 mg/dL (7-18)
[2023-12-02 09:27] LABS: ALBUMIN 2.5 g/dl (3.4-5.0); ANION GAP 9 mmol/L (4-13); CO2 28 mmol/L (21-32); GLUCOSE,RANDOM 84 mg/dL (74-106)
[2023-12-02 09:29] LABS: CREATININE 0.4 mg/dL (0.55-1.3); SGOT/AST 13 U/L (15-37)
[2023-12-02 09:31] LABS: BILIRUBIN,TOTAL 0.5 mg/dL (0.2-1)
[2023-12-02 09:32] LABS: ALK PHOS 126 U/L (45-117); SGPT/ALT < 6 U/L (13-61)
[2023-12-04 07:14] VITALS: RESP 18
[2023-12-05 09:20] VITALS: BP 106/69; PULSE 88; TEMP 97.3
== END 2023-12-05 14:36 | DRG 560 ==
LOC: JER 12:26 → JERBED 14:29 → J7W 15:49 → OBSVTOIN 11-20 13:27
PROVIDERS: ADMIT Internal Medicine; ATTEND Internal Medicine
PROC: 0SSBXZZ Reposition Left Hip Joint, External Approach (ICD-10-PCS; principal; 2023-11-19 17:05)
DX: T84.021A Dislocation of internal left hip prosthesis, initial encounter (principal); E44.0 Moderate protein-calorie malnutrition; N39.0 Urinary tract infection, site not specified; R78.81 Bacteremia; G20.A1 Parkinson's disease without dyskinesia, without mention of fluctuations; J45.909 Unspecified asthma, uncomplicated; L89.159 Pressure ulcer of sacral region, unspecified stage; R62.7 Adult failure to thrive; Z68.22 Body mass index [BMI] 22.0-22.9, adult; I10 Essential (primary) hypertension; M81.0 Age-related osteoporosis without current pathological fracture; B96.4 Proteus (mirabilis) (morganii) as the cause of diseases classified elsewhere; K59.00 Constipation, unspecified; W01.0XXA Fall on same level from slipping, tripping and stumbling without subsequent striking against object, initial encounter; Y92.099 Unspecified place in other non-institutional residence as the place of occurrence of the external cause; Y83.8 Other surgical procedures as the cause of abnormal reaction of the patient, or of later complication, without mention of misadventure at the time of the procedure; Z85.51 Personal history of malignant neoplasm of bladder; Z86.73 Personal history of transient ischemic attack (TIA), and cerebral infarction without residual deficits
CPT/HCPCS: 0241U-QW; 36415; 71045-TC-FY; 72170-TC-FY; 73502-TC-LT-FY; 76000-TC-FY; 80053; 81003; 82962; 83605; 83735; 84100; 84443; 84484; 85025; 85027; 85610; 85730; 86850; 86900; 86901; 87040; 87086; 87186; 93005; 93010; 94010; 94760; 97116-GP; 97162-GP; 99285-25; G0378; J0131